=== PATIENT | male | born 1985 | race Caucasian/White ===

== ENCOUNTER 2022-01-06 03:57 | Emergency (ER) | payer BC ==
[~2022-01-06] VITALS: Ht 190.5 cm; Wt 102.1 kg
--- NOTE | 2022-01-06 04:10 | NUR ---
JOS 89 FROM THE [facility] FOR C/O EPIGASTRIC PAIN X 90 MIN. PT STATED HAD A HEAVY MEAL BEFORE BED LAST NIGHT. PT A/OX4. TOLERATING R/A WELL WITH NO SOB.
[2022-01-06] MEDS ORDERED: MAG HYDROX/AL HYDROX/SIMETH 30 ML UDC PO ONE (04:30)
[2022-01-06] MEDS ORDERED: LIDOCAINE VISCOUS 2% UD 15 ML UDC MM ONE (04:30)
--- NOTE | 2022-01-06 04:33 | NUR ---
DR. BURT SALMON AT PT'S BEDSIDE
[2022-01-06] MEDS ORDERED: MAG HYDROX/AL HYDROX/SIMETH 30 ML UDC ONE (04:34)
[2022-01-06] MEDS ORDERED: LIDOCAINE VISCOUS 2% UD 15 ML UDC ONE (04:35)
[2022-01-06] MEDS ORDERED: FAMOTIDINE (20 MG) 20 MG TABLET ONE (04:47)
--- NOTE | 2022-01-06 04:50 | NUR ---
LAC #18G S/L; PATENT AND INTACT. BLOOD AND URINE COLLECTED AND SENT TO LAB
[2022-01-06 04:56] LABS: BILIRUBIN,URINE NEGATIVE (NEGATIVE); COLOR,URINE YELLOW (YELLOW); LEUKOCYTE ESTERASE ,URINE NEGATIVE (NEGATIVE); NITRITE, URINE NEGATIVE (NEGATIVE); PH,URINE 5.5 (5.0-8.0); PROTEIN,URINE NEGATIVE (NEGATIVE); UGLUCOSE NEGATIVE (NEGATIVE); UROBILINOGEN,URINE 0.2 EU/dL (0.2)
[2022-01-06] MEDS ORDERED: FAMOTIDINE (20 MG) 20 MG TABLET PO ONE (05:00)
[2022-01-06 05:17] LABS: ALBUMIN 3.9 g/dL (3.4-5.0); BILIRUBIN,DIRECT 0.1 mg/dL (0.0-0.2); BILIRUBIN,TOTAL 0.2 mg/dL (0.2-1.0); CREATININE 0.9 mg/dL (0.6-1.3); POTASSIUM 4.5 mmol/L (3.5-5.1); TOTAL PROTEIN, SERUM 7.9 g/dL (6.4-8.2)
[2022-01-06 05:20] LABS: CALCIUM, SERUM 9.4 mg/dL (8.5-10.1)
[2022-01-06] MEDS ORDERED: FAMO-131 PO (05:47)
--- NOTE | 2022-01-06 05:55 | NUR ---
PT SLEEPING AND MADE COMFORTABLE . VSS. PT IN NO ACUTE DISTRESS AT THIS TIME
[2022-01-06 06:12] LABS: BASOPHILS # (AUTO) 0.1 K/uL (0.0-0.2); EOSINOPHILS % (AUTO) 5.3 % (0.0-6.0); HEMATOCRIT 48 % (39-51); HEMOGLOBIN 16.7 g/dL (13.5-17.5); LYMPHOCYTES # (AUTO) 1.7 K/uL (0.8-4.8); LYMPHOCYTES % (AUTO) 26.5 % (20.0-44.0); MEAN CORPUSCULAR HGB CONC 35 g/dl (31.0-36.0); MEAN CORPUSCULAR VOLUME 90 fL (80-96); MONOCYTES # (AUTO) 0.5 K/uL (0.1-1.30); MONOCYTES % (AUTO) 8.1 % (2.0-12.0); NEUTROPHILS # (AUTO) 3.8 K/uL (1.8-8.9); NEUTROPHILS % (AUTO) 59.1 % (43.0-81.0); PLATELET COUNT (AUTO) 194 K/uL (150-450); RED BLOOD CELL COUNT(AUTO) 5.31 MIL/uL (4.5-6.0); WHITE BLOOD COUNT (AUTO) 6.4 K/uL (4.3-11.0)
--- NOTE | 2022-01-06 06:36 | NUR ---
AML ANALYST AT PT'S BEDSIDE
--- NOTE | 2022-01-06 07:26 | NUR ---
IV removed. Catheter intact and site benign. Pressure and 4x4 applied to site. No bleeding noted.
--- NOTE | 2022-01-06 08:10 | NUR ---
Patient discharged to home in stable condition. Written and verbal after care instructions given. Patient verbalizes understanding of instruction.
[2022-01-06 08:18] VITALS: BP 137/86
== END 2022-01-06 08:19 | disposition home or self-care (01) ==
LOC: ER 04:00
DX: R10.13 Epigastric pain (principal); K21.9 Gastro-esophageal reflux disease without esophagitis; I10 Essential (primary) hypertension; Z79.899 Other long term (current) drug therapy
CPT/HCPCS: 36415; 71045-TC; 80048-TC; 80076-TC; 83690-TC; 84484-TC; 85025-TC